=== PATIENT | female | born 1990 | race Caucasian/White ===

== ENCOUNTER → 2016-03-25 | Outpatient (CLI) | payer OTHER ==
[~2016-03-25] MED LIST: HYDR50CA2 PO; LEVE500T13 PO; ONDA4TAB10 SL; QUET-206 PO; SERT50TA PO; VNTHFA/IN INH
== END | disposition home or self-care (01) ==
LOC: C.CPL 09:42
PROVIDERS: ATTEND Emergency Medicine Emergency Medical Services
DX: F11.20 Opioid dependence, uncomplicated (principal); R00.1 Bradycardia, unspecified

== ENCOUNTER 2016-08-02 11:32 | Emergency (ER) | payer OTHER ==
[~2016-08-02] VITALS: Ht 167.6 cm; Wt 59.0 kg
[~2016-08-02 11:32] MED LIST changes: -VNTHFA/IN INH
[2016-08-02 11:37] VITALS: TEMP 36.4; Ht 167.6 cm; Wt 59.0 kg
[2016-08-02] MEDS ORDERED: ALBUTEROL 0.083% NEBU SOLN 3 ML VIAL INH STA (12:27)
--- NOTE | 2016-08-02 13:00 | DIAGNOSTIC IMAGING REPORT ---
SINGLE VIEW CHEST CLINICAL HISTORY: Cough and dyspnea. . FINDINGS: An AP, portable, upright chest radiograph is compared to study dated 11/17/2013. The cardiomediastinal silhouette is unremarkable. The lungs and pleural spaces are clear. No pneumothorax is seen. The bony thorax is grossly intact. IMPRESSION: No active disease in the chest. Electronically signed by: Lazaro Rosario M.D. 08/02/2016 12:59 PM Dictated Date/Time: 08/02/2016 12:59 PM
[2016-08-02] MEDS ORDERED: VNTHFA/IN INH (13:22)
[2016-08-02 13:40] VITALS: BP 128/70; PULSE 104; O2SAT 98
--- NOTE | 2016-08-02 14:58 | EMERGENCY ROOM VISIT NOTE ---
History Report prepared by Lola: Agustín Gifford Under the Supervision of: Dr. Goyo Duarte D.O. First contact with patient: 11:43 Chief Complaint: COUGH Stated Complaint: COUGH,BODY ACHES, STOMACH ACHES,METHODONE PT Nursing Triage Summary: pt to the ED with c/o sore throat cough and runny nose and FITZGERALD for 3-4 days and sore body and has not had methadone in 4 days and feels like she is withdrawing from it and has n/v no vag bleeding and dc and has airy gassy feeling in abd History of Present Illness The patient is a 25 year old female who presents to the Emergency Room with complaints of a persistent illness that started 3 days ago. She says that her son is sick with similar symptoms as well. The patient notes that she has had a cough, runny nose, and sore throat, but no fevers. She says that she is so congested and that is making her short of breath on exertion. The patient adds that she missed her methadone dose the last 4 days, and is having typical methadone withdrawal symptoms, including generalized body aches. She says that she did get her dose this morning at 0830. She says that this morning, she started getting low abdominal pressure only when bending down, but she knows what that is from and does not want to be worked up for that. She denies any chest pain, vaginal bleeding, discharge, or cramping. The patient is currently , and was recently diagnosed with hepatitis C. She is a smoker. The patient says that she has acid reflux. Source of History: patient Onset: 3 days ago Position: other (global - illness) Timing: other (persistent) Associated Symptoms: + sorethroat, + cough, + SOB, + abdominal pain (low ), No fevers, No chest pain Note: Associated symptoms: Generalized achiness from methadone withdrawal. Runny nose. Denies vaginal bleeding, discharge, or cramping. Review of Systems See HPI for pertinent positives & negatives. A total of 10 systems reviewed and were otherwise negative. Past Medical & Surgical Medical Problems: (1) Asthma (2) Kidney disease (3) Vaginal delivery Family History Cancer FH: gallbladder disease FH: lung disease Kidney disease Kidney stones Seizures Social History Smoking Status: Current Every Day Smoker Alcohol Use: none Drug Use: heroin Housing Status: lives alone Occupation Status: unemployed Current/Historical Medications Scheduled Albuterol Hfa (Ventolin Hfa), 2-4 PUFFS INH Q6H Sertraline (Zoloft), 50 MG PO DAILY Scheduled PRN Ondasetron Odt (Zofran Odt), 4 MG SL Q6H PRN for Nausea Allergies Coded Allergies: Vancomycin (Verified Allergy, Intermediate, SEVERE ITCHINESS AND REDNESS ON FACE AND NECK, 08/02/16) NO HIVES, NO SOB, VITALS STABLE Penicillins (Verified Allergy, Mild, RASH AND TONGUE SWELLING, 08/02/16) Amoxicillin (Verified Allergy, Unknown, RASH AND TONGUE SWELLING, 08/02/16) Physical Exam Vital Signs Date Time Temp Pulse Resp B/P (MAP) Pulse Ox O2 Delivery O2 Flow Rate FiO2 08/02/16 13:40 104 16 128/70 98 08/02/16 11:37 36.4 78 20 101/54 92 Room Air Physical Exam GENERAL: chronically ill appearing, sitting up in bed, disheveled EYE EXAM: normal conjunctiva OROPHARYNX: no exudate, no erythema, lips, buccal mucosa, and tongue normal and mucous membranes are moist NECK: supple, no nuchal rigidity, no adenopathy, non-tender LUNGS: Diffuse wheezing bilaterally. HEART: no murmurs, S1 normal and S2 normal ABDOMEN: Gravid uterus present just above umbilicus. Abdomen soft, non-tender, normo-active bowel sounds, no rebound or guarding. BACK: Back is symmetrical on inspection and there is no deformity, no midline tenderness, no CVA tenderness. SKIN: no rashes and no bruising UPPER EXTREMITIES: upper extremities are grossly normal. LOWER EXTREMITIES: calves equal bilaterally NEURO EXAM: Normal sensorium, cranial nerves II-XII grossly intact, normal speech, no gross weakness of arms, no gross weakness of legs. Medical Decision & Procedures ER Provider Diagnostic Interpretation: X-ray results as stated below per my review and the radiologist's interpretation : SINGLE VIEW CHEST CLINICAL HISTORY: Cough and dyspnea. . FINDINGS: An AP, portable, upright chest radiograph is compared to study dated 11/17/2013. The cardiomediastinal silhouette is unremarkable. The lungs and pleural spaces are clear. No pneumothorax is seen. The bony thorax is grossly intact. IMPRESSION: No active disease in the chest. Electronically signed by: Lazaro Rosario M.D. 08/02/2016 12:59 PM Dictated Date/Time: 08/02/2016 12:59 PM Medications Administered Medications (Trade) Dose Ordered Sig/Reggie Route Start Time Stop Time Status Last Admin Dose Admin Albuterol Sulfate (Ventolin 0.083% 2.5MG/3ML Neb) 2.5 mg NOW STAT INH 08/02/16 12:27 08/02/16 12:30 DC 08/02/16 12:34 2.5 MG ED Course ED COURSE: Vital signs were reviewed and showed normal vitals. The patients medical record was reviewed The above diagnostic studies were performed and reviewed. ED treatments and interventions as stated above. 1221: The patient was evaluated in room C11A. A complete history and physical examination was performed. 1227: Ordered Ventolin 0.083% 2.5MG/3ML Neb 2.5 mg INH. 1310: Upon reevaluation, the patient's wheezing is completely gone. I discussed my findings with the patient and she understands and agrees with the treatment plan. Based on the patients age, coexisting illnesses, exam and lab findings the decision to treat as an outpatient was made. The patient remained stable while under my care. The patient appeared well at the time of discharge. Medical Decision Differential diagnoses includes but is not limited to pneumonia, bronchitis, COPD/Asthma exacerbation, pneumothorax, pulmonary embolism, congestive heart failure, acute coronary syndrome Medication Reconciliation: I attest that I have personally reviewed the patient' s current medication list. Blood pressure screening: Patient was found to have normal blood pressure on screening and does not require follow-up. Patient is a 25-year-old female who presents the ER for cough, runny nose and sore throat. She does have a history of asthma. She notes that her son has the same symptoms and have been present for the past 3 days. She does complain of multiple other myalgias and arthralgias notes that this atypical as she missed 3 doses of her methadone. Vitals are unremarkable. She does have a productive cough. Following the treatment she had complete resolution of her wheezing. She was discharged with an inhaler. She was instructed to follow-up with her primary care doctor. I did not give her steroids as she is currently . I do favor this likely bronchitis. Discussed with Pt concerning signs and symptoms to watch out for. Pt was instructed to follow up with their PCP and discussed with the patient their option to return to the ED at anytime for persistent or worsening symptoms. The appropriate anticipatory guidance and out-patient management, including indications for return to the emergency department, were explained at length to the patient and understood. Impression Primary Impression: Upper respiratory infection Scribe Attestation The scribe's documentation has been prepared under my direction and personally reviewed by me in its entirety. I confirm that the note above accurately reflects all work, treatment, procedures, and medical decision making performed by me. Departure Information Dispostion Home / Self-Care Prescriptions Albuterol Hfa (VENTOLIN HFA) 200 Puffs/71601 Mcg Aers 2-4 PUFFS INH Q6H, #1 INHALER Prov: Goyo Duarte, DO 08/02/16 Referrals No Doctor, Assigned (PCP) Patient Instructions ED URI Viral, My [facility] Additional Instructions Please follow up with your primary care doctor with in the next 24 hours. Any worsening of your symptoms, please return to the ED immediately. This includes fevers greater than 100.4, persistent nausea, vomiting, unable to eat or drink, or any other concerning signs or symptoms from your standpoint. Please use your inhaler as prescribed. Problem Qualifiers Primary Impression: Upper respiratory infection URI type: unspecified URI Qualified Codes: J06.9 - Acute upper respiratory infection, unspecified
== END 2016-08-02 13:45 | disposition home or self-care (01) ==
LOC: C.EDB 11:33 → C.EDC 13:45
DX: J06.9 Acute upper respiratory infection, unspecified (principal); O99.320 Drug use complicating pregnancy, unspecified trimester; F11.20 Opioid dependence, uncomplicated; O99.330 Smoking (tobacco) complicating pregnancy, unspecified trimester; F17.200 Nicotine dependence, unspecified, uncomplicated; J45.909 Unspecified asthma, uncomplicated; B19.20 Unspecified viral hepatitis C without hepatic coma; Z84.1 Family history of disorders of kidney and ureter; Z82.0 Family history of epilepsy and other diseases of the nervous system